=== PATIENT | female | born 1980 | race African-American/Black ===

== ENCOUNTER 2017-02-09 11:23 | Emergency (ER) | payer OTHER, BC ==
[2017-02-09] MEDS ORDERED: IPRATROPIUM/ALBUTEROL 3 ML DEYVIAL IH ONE ×2 (11:30→12:29)
[2017-02-09 11:41] VITALS: O2SAT 99
[2017-02-09 11:46] LABS: % IMMATURE GRANULYOCYTES 0.3 % (0.0-1.1); ABSOLUTE IMMATURE GRANULOCYTES 0.02 10^3/uL (0.00-0.10); ADD DIFF? NO; ADD MORPH? NO; ADD SCAN? NO; ATYPICAL LYMPHOCYTE FLAG 10 (0-99); FRAGMENT RBC FLAG 0 (0-99); HEMATOCRIT 38.4 % (38.0-47.0); HEMOGLOBIN 13.1 g/dL (12.6-16.3); LEFT SHIFT FLG 0 (0-99); LIPEMIA HEMOLYSIS FLAG 90 (0-99); MEAN CELL HEMOGLOBIN 29.4 pg (27.9-34.1); MEAN CELL HEMOGLOBIN CONCENTR. 34.1 g/dL (32.4-36.7); MEAN CELL VOLUME 86.3 fL (81.5-99.8); MEAN PLATELET VOLUME 11.1 fL (8.7-11.7); PLATELET CLUMPS FLAG 0 (0-99); PLATELET COUNT 281 10^3/uL (150-400); RED BLOOD CELL COUNT 4.45 10^6/uL (4.18-5.33); RED CELL DISTRIBUTION WIDTH 13.2 % (11.5-15.2)
[2017-02-09 12:17] LABS: ANION GAP 15 mEq/L (8-16); CALCIUM 9.5 mg/dL (8.5-10.4); CARBON DIOXIDE 20 mEq/l (22-31); CHLORIDE 102 mEq/L (97-110); CREATININE 0.7 mg/dL (0.6-1.0); GLOMERULAR FILTRATION RATE > 60; GLUCOSE 95 mg/dL (70-100); POTASSIUM 5.7 mEq/L (3.5-5.2); SODIUM 137 mEq/L (134-144)
[2017-02-09 12:19] LABS: SPECIMEN HEMOLYSIS 282
[2017-02-09] MEDS ORDERED: IPRATROPIUM/ALBUTEROL 3 ML DEYVIAL ONE (12:27)
[2017-02-09 12:50] LABS: TROPONIN I 0.026 ng/mL (0.000-0.034)
--- NOTE | 2017-02-09 12:50 | CPEKG ---
Heart Rate: 98 RR Interval: 612 P-R Interval: 164 QRSD Interval: 80 QT Interval: 356 QTC Interval: 455 P [place]: 28 QRS [place]: 51 T Wave [place]: 5 EKG Severity - BORDERLINE ECG - EKG Impression: SINUS RHYTHM EKG Impression: BORDERLINE T WAVE ABNORMALITIES Electronically Signed By: Armin Williamson 09-Feb-2017 16:10:25
--- NOTE | 2017-02-09 12:55 | EDPHY ---
H & P Stated Complaint: exasberation asthma Source: Patient Exam Limitations: No limitations - Personal History LMP (Females 10-55): 22-28 Days Ago Current Tetanus/Diphtheria Vaccine: Yes Current Tetanus Diphtheria and Acellular Pertussis (TDAP): Yes - Medical/Surgical History Hx Asthma: Yes Hx Chronic Respiratory Disease: No Hx Diabetes: No Hx Cardiac Disease: No Hx Renal Disease: No Hx Cirrhosis: No Hx Alcoholism: No Hx HIV/AIDS: No Hx Splenectomy or Spleen Trauma: No Other PMH: cervical dysplasia, asthma, migraines - Social History Smoking Status: Never smoked HPI/ROS: CHIEF COMPLAINT: Asthma exacerbation, chest tightness HISTORY OF PRESENT ILLNESS: Patient complains of chest tightness and asthma exacerbation. Symptoms started yesterday. They have been constant duration. Moderate symptoms of worsen. Feels this is related to her asthma as it is typical asthma exacerbation for her. Minimal wheezing, but this is also typical for her. No fever chills. She did recently have upper respiratory infection and cough that has not fully resolved. She says this normally leads to asthma exacerbation for. No lower extremity erythema edema or pain. No history of blood clot. She did have a flight to [place] 6 weeks ago. No other associated complaints or modifying factors. REVIEW OF SYSTEMS: Ten systems reviewed and are negative unless otherwise noted in the HPI PAST MEDICAL HISTORY: Asthma, anxiety, migraines SOCIAL HISTORY: Nonsmoker. Lives independently locally. 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 Airway patent Neck: Normal inspection, supple, non-tender Respiratory: Lungs are mostly clear with mild wheezing. No retractions or distress. No tachypnea. No consolidation or crackles Cardiovascular: Regular rate and rhythm. No murmur. Pulses intact distally. Gastrointestinal: Abdomen is soft and nontender Back: non-tender, no bony abnormalities Neurological: GCS 15. A&O, nonfocal, normal gait Skin: Warm and dry, no rash. No erythema of the extremities. Extremities: Symmetric range of motion all 4 extremities. Nontender, no pedal edema. No palpable cords. No pain with passive dorsiflexion. No evidence of DVT on examination Psychiatric: Mood and affect normal DIFFERENTIAL DIAGNOSES: Including but not limited to asthma exacerbation, status asthmaticus, pneumonia , bronchitis, venous thrombolic event, PE MDM: 12:30 p.m. Patient complains of asthma exacerbation symptoms. For her its chest tightness and difficulty breathing. She has minimal wheezing with her history of asthma and has minimal today. No fever chills. She was recently ill. Vital signs are stable. There is mild wheezing but no status asthmaticus. CBC and BMP and chest x-ray were ordered prior to me evaluating the patient. I have just evaluated the patient I have ordered EKG and further laboratory studies to rule out PE and other etiologies. She does not meet criteria for high risk for VTE, but she is not PERC negative, thus I have ordered D-dimer. She is in no acute distress. 1:15 p.m. I have re-evaluated the patient. She is feeling better after the DuoNeb treatment. Laboratory studies are negative including a negative D-dimer. Troponins negative. She feels this is related to her asthma and I agree. She does not have status asthmaticus. She is in no acute distress. She is stable for discharge home. Treat with short course of steroid. She is new to the area , thus I will provide the on-call palpation medicine for follow up to establish PCP. ER precautions discussed specifically for any chest pain. She is comfortable this plan and discharged home stable condition SUPERVISION: Patient was evaluated in conjunction with the supervising physician. Please see their note for details. (Brian Prather) Constitutional: Initial Vital Signs Temperature (C) 36.7 C 02/09/17 11:26 Heart Rate 100 02/09/17 11:26 Respiratory Rate 22 H 02/09/17 11:26 Blood Pressure 137/96 H 02/09/17 11:26 O2 Sat (%) 96 02/09/17 11:26 O2 Delivery Mode Room Air Allergies/Adverse Reactions: azithromycin [From Zithromax Z-Ramos] Allergy (Verified 02/09/17 11:30) Home Medications: Medication Instructions Recorded Acetaminophen/Codeine 300/30Mg 1 each PO Q6 PRN #15 tab 02/09/17 [Tylenol #3 (*)] Benzonatate [Tessalon Pearles (RX)] 100 mg PO Q8 PRN #15 cap 02/09/17 predniSONE [Deltasone] 60 mg PO DAILY #15 tablet 02/09/17 Medical Decision Making ED Course/Re-evaluation: I did not see this patient while she was in the emergency department. However her care was discussed with the PA while the patient was in the department. I agree with treatment plan and management (Armin Williamson) - Data Points Laboratory Results: Laboratory Results 02/09/17 11:40 02/09/17 11:40 Medications Given: Discontinued Medications Albuterol/Ipratropium (Duoneb) 3 ml IH EDNOW ONE Stop: 02/09/17 11:31 Last Admin: 02/09/17 11:34 Dose: 3 ml Albuterol/Ipratropium (Duoneb) 3 ml IH EDNOW ONE Stop: 02/09/17 12:30 Last Admin: 02/09/17 12:29 Dose: 3 ml Dexamethasone (Decadron Injection) 10 mg IVP EDNOW ONE Stop: 02/09/17 13:17 Last Admin: 02/09/17 13:19 Dose: 10 mg Departure - Departure Disposition: Home, Routine, Self-Care Clinical Impression: Asthma without status asthmaticus Condition: Good Instructions: Asthma (ED) Additional Instructions: 1. Medications as prescribed as needed 2. Follow up with primary care physician 3. Return to the ER for any chest pain, shortness of breath Referrals: Patient,NotPresent [Unknown] - As per Instructions Elio Dempsey MD [[facility] [place] Primary Care Provider] - As per Instructions Prescriptions: Acetaminophen/Codeine 300/30Mg [Tylenol #3 (*)] 1 each PO Q6 PRN #15 tab PRN Reason: Cough, Mild Benzonatate [Tessalon Pearles (RX)] 100 mg PO Q8 PRN #15 cap PRN Reason: Cough, Mild predniSONE [Deltasone] 60 mg PO DAILY #15 tablet
[2017-02-09] MEDS ORDERED: DEXAMETHASONE 10 MG/ML VIAL IVP ONE (13:16)
[2017-02-09 13:25] VITALS: BP 108/72; PULSE 95; RESP 16; TEMP 97.9
== END 2017-02-09 13:28 | disposition home or self-care (01) ==
DX: J45.909 Unspecified asthma, uncomplicated (principal)
CPT/HCPCS: 96374; J1100